=== PATIENT | male | born 1980 | race African-American/Black ===

== ENCOUNTER 2021-03-22 19:56 | Emergency (ER) | payer OTHER ==
[~2021-03-22] VITALS: Ht 172.7 cm; Wt 74.8 kg
[~2021-03-22 19:56] MED LIST: ULTRAM 50MG TAB50 MG PO
[2021-03-22 20:02] VITALS: BP 131/56
[2021-03-22] MEDS ORDERED: NAPROXEN SODIU220 M2 PO (20:21)
[2021-03-22] MEDS ORDERED: DOXYCYCLINE 10100 MG PO (20:21)
== END 2021-03-22 20:50 | disposition home or self-care (01) ==
LOC: ER 19:56
DX: S91.13 Puncture wound without foreign body of toe without damage to nail (principal); F17.200 Nicotine dependence, unspecified, uncomplicated; W22.8XXA Striking against or struck by other objects, initial encounter; Y93.89 Activity, other specified; Y92.89 Other specified places as the place of occurrence of the external cause; Y99.8 Other external cause status